=== PATIENT | female | born 1995 | race Caucasian/White ===

== ENCOUNTER 2016-05-28 17:43 | Emergency (ER) | payer MEDICAID, OTHER ==
[~2016-05-28 17:43] MED LIST: PREN1CAP7 PO
[2016-05-28 17:45] VITALS: BP 133/70; PULSE 76; RESP 16; TEMP 97.9; O2SAT 100
[2016-05-28] MEDS ORDERED: IPRA0.06 EACH NARE (18:50)
[2016-05-28] MEDS ORDERED: AMOX875T2 PO (18:50)
--- NOTE | 2016-05-28 18:51 | PD ---
HPI Chief Complaint: Cold / Flu Symptoms Time Seen by Provider: 18:20 Travel History International Travel<30 days: No Contact w/Intl Traveler<30days: No Traveled to known affect area: No History of Present Illness HPI Patient is a 21-year-old female who presents emergency for evaluation of nasal congestion, runny nose, cough, sore throat, earache. Patient states her symptoms started 4 days ago. She states that they have not gotten any better. Patient has not been taking any [id number]-[id number] medications. Patient is 8 1/2 weeks currently. She denies any related complaints. He denies any fevers, chills, nausea, vomiting, chest pain or shortness of breath. PFSH Past Medical History Hx Anticoagulant Therapy: No Cardiovascular Problems: Yes (IRREGULAR HEART BEAT) Chemotherapy: No Cerebrovascular Accident: No Diabetes: No Respiratory: No ?: Menopausal: No Past Surgical History Joint Replacement: Yes (ARTHROSCOPIC SURGERY) Social History Alcohol Use: No Tobacco Use: No Substance Use: No Allergies-Medications (Allergen,Severity, Reaction): Coded Allergies: Lidocaine (Verified Allergy, Severe, Hives, 05/28/16) Bactrim (Verified Allergy, Intermediate, Rash, 05/28/16) *MDRO Multi-Drug Resistant Organism (Verified Allergy, Unknown, 05/28/16) MRSA - wound 08/2013 Reported Meds & Prescriptions Reported Meds & Active Scripts Active Amoxicillin-Clavulanate 875-125 mg Tab 875 Mg PO BID 10 Days not for use in CrCl <30 mL/minute Ipratropium Nasal 0.06% [place] 1 [place] EACH NARE TID Citranatal [place] ( W/O Vit A W/ Fe Fumar) 27-1-260 Mg Cap 1 Cap PO DAILY Review of Systems Except as stated in HPI: all other systems reviewed are Neg General / Constitutional: No: Fever, Chills Eyes: No: Visual changes HENT: Positive: Sore Throat, Rhinitis, Congestion, Earache, No: Headaches, Neck Pain Cardiovascular: No: Chest Pain or Discomfort Respiratory: Positive: Cough, No: Shortness of Breath, Wheezing Gastrointestinal: No: Nausea, Vomiting, Diarrhea, Abdominal Pain Genitourinary: No: Pelvic Pain, Discharge, Vaginal Bleeding Musculoskeletal: No: Myalgias Neurologic: No: Dizziness, Syncope Physical Exam Narrative GENERAL: Well-nourished, well-developed patient. SKIN: Warm and dry. HEAD: Normocephalic. ENT: Mucosa pink and moist. No erythema or exudates. No uvular edema. No uvular , palatal, or tonsillar deviation. Airway patent. Nasal turbinates appear edematous without bloody discharge or purulent drainage or septal hematoma. Cobblestone appearance to posterior pharynx. EYES: No scleral icterus. No injection or drainage. EARS: Bilateral pinnae and external ear canals appear within normal limits. Left tympanic membranes without erythema, dullness or perforation. Right tympanic membrane is mildly erythematous, no bulging or loss of landmarks noted. NECK: Supple, trachea midline. No JVD or lymphadenopathy. CARDIOVASCULAR: Regular rate and rhythm without murmurs, gallops, or rubs. RESPIRATORY: Breath sounds equal bilaterally. No accessory muscle use. GASTROINTESTINAL: Abdomen soft, non-tender, nondistended. MUSCULOSKELETAL: No cyanosis, or edema. BACK: Nontender without obvious deformity. No CVA tenderness. Data Data Last Documented VS Vital Signs Date Time Temp Pulse Resp B/P Pulse Ox O2 Delivery O2 Flow Rate FiO2 05/28/16 17:45 97.9 76 16 133/70 100 Room Air [facility] Medical Decision Making Medical Screen Exam Complete: Yes Emergency Medical Condition: Yes Interpretation(s) Vital Signs Date Time Temp Pulse Resp B/P Pulse Ox O2 Delivery O2 Flow Rate FiO2 05/28/16 17:45 97.9 76 16 133/70 100 Room Air Differential Diagnosis Upper respiratory infection versus bronchitis versus pneumonia versus pharyngitis versus otitis media versus otitis externa versus other Narrative Course Patient is a 21-year-old female who presented to the emergency room for evaluation of nasal congestion, cough and runny stuffy nose, sore throat, earache. Physical examination revealed a mildly erythematous left tympanic membrane. Her presentation appears most consistent with a viral upper respiratory infection. Her symptoms and ongoing for approximately 4 days. She is currently afebrile and well oxygenated on room air. She was encouraged to continue symptomatic management. She is encouraged take acetaminophen as needed for body aches or pain, nasal saline wash, a humidifier. She is encouraged to follow-up with her DINKEY ENGINE OPERATOR. She will be provided with a prescription for ipratropium nasal spray which is recommended per up-to-date guidelines. Patient was encouraged to return to emergency department for any new or worsening symptoms. Patient verbalizes understanding of these instructions. Patient is stable for discharge. Diagnosis Primary Impression: Upper respiratory infection Qualified Code: J06.9 - Viral upper respiratory tract infection Additional Impression: Otitis media, left Qualified Code: H66.92 - Left otitis media, unspecified chronicity, unspecified otitis media type Referrals: Primary Care Physician 3 days Patient Instructions: General Instructions, Upper Respiratory Infection (ED) Departure Forms: Tests/Procedures, Work Release Enter return to work date: May 31, 2016 Additional Instructions: Follow-up with your primary doctor or DINKEY ENGINE OPERATOR Return to emergency department immediately for any new or worsening symptoms Continue with symptomatic management Obtain [id number] nasal saline wash, a humidifier, and acetaminophen as needed and as directed for pain Continue watchful waiting if symptoms begin to worsen you can start the antibiotic however you should be reevaluated by her primary doctor or in the emergency department. Med/Other Pt SpecificInfo: Prescription(s) given Scripts Amoxicillin-Clavulanate 875-125 mg [id number] Mg PO BID 10 Days Ref 0 not for use in CrCl <30 mL/minute Prov:Meghan Strickland 05/28/16 Ipratropium Nasal 0.06% [place]1 [place] EACH NARE TID #1 BOTTLE Ref 0 Prov:Meghan Strickland 05/28/16 Disposition: 01 DISCHARGE HOME Condition: Stable Meghan Strickland May 28, 2016 18:51
[2016-07-15] MEDS ORDERED: TERC.4%V VAGINAL (16:19)
[2016-07-15] MEDS ORDERED: METR-1 PO (16:19)
== END 2016-05-28 19:11 | disposition home or self-care (01) ==
LOC: NEPB 17:43
DX: J06.9 Acute upper respiratory infection, unspecified (principal); H66.92 Otitis media, unspecified, left ear
CPT/HCPCS: 99283

== ENCOUNTER 2016-07-22 11:27 | Emergency (ER) | payer OTHER ==
[~2016-07-22 11:27] MED LIST changes: +METR-1 PO; +TERC.4%V VAGINAL
--- NOTE | 2016-07-22 11:58 | PD ---
HPI Chief Complaint near syncopal episode Date Seen: Jul 22, 2016 Time Seen: 11:30 (Manuel Garcia MD R2) Travel History International Travel<30 Days: No Contact w/Intl Traveler<30Days: No Known Affected Area: No (Manuel Garcia MD R2) History of Present Illness HPI 21-year-old female at 16/2 weeks gestational age presenting to the [facility] ED for a near syncopal episode. She admits to not doing a perfect job of staying well hydrated. Today she woke up and has been feeling lightheaded all day, and then while at work she was standing talking to her boss when her vision blacked out and she had to be helped into a chair. She notes she was sweating profusely after this event. This concerned her enough that she decided to come to the hospital to be evaluated. She denies feeling the baby moving, though understands she is early for this. Of note she does admit to having a history of PVCs with a full cardiac workup in the past that was within normal limits. Para: 0 : 1 (Manuel Garcia MD R2) History Past Medical History Medical History: Denies Significant Hx (Manuel Garcia MD R2) Obstetric History Obstetric History (Manuel Garcia MD R2) Past Surgical History Narrative Surgical Arthroscopic knee surgery (Manuel Garcia MD R2) Family History Family History: Negative (Manuel Garcia MD R2) Social History Alcohol Use: No Tobacco Use: No Substance Abuse: No (Manuel Garcia MD R2) Allergies-Medications (Allergen,Severity, Reaction): Coded Allergies: Lidocaine (Verified Allergy, Severe, Hives, 07/07/16) Bactrim (Verified Allergy, Intermediate, Rash, 07/07/16) *MDRO Multi-Drug Resistant Organism (Verified Allergy, Unknown, 07/07/16) MRSA - wound 08/2013 Home Meds Active Scripts Terconazole Vaginal Cream (Terazol 7 Vaginal Cream)0.4 % Cream1 Appl VAGINAL HS #45 TUBE Ref 0 1 applicatorful intravaginally x 7 nights Prov:Kristi Floyd 07/15/16 Metronidazole (Flagyl)500 Mg Uvh235 Mg PO BID #14 TAB Ref 0 Prov:Kristi FloydP 07/15/16 W/O Vit A W/ Fe Fumar (Citranatal [place])27-1-260 Mg Cap1 Cap PO DAILY #30 CAP Ref 11 Prov:NadegeanaliliaKristi Powell BARBER INSTRUCTOR 05/21/16 Review of Systems General / Constitutional: Weight Gain, No: Fever, Weight Loss Eyes: Blurred Vision, Visual changes HENT: Headaches, Lightheadedness Cardiovascular: No: Irregular Rhythm, Chest Pain or Discomfort Respiratory: No: Cough, Short of Breath Gastrointestinal: Nausea, Abdominal Pain, No: Vomiting, Constipation, Loss of Appetite Genitourinary: No: Urgency, Frequency, Dysuria, Pelvic Pain, Discharge, Vaginal Bleeding Musculoskeletal: No: Limited ROM, Weakness, Cramping, Edema Skin: No Rash, No Itching Neurologic: Dizziness, Syncope (near syncopal), Headache, No: Weakness, Slurred Speech, Seizures Psychiatric: No: Anxiety, Depression (Manuel Garcia MD R2) Physical Exam Narrative GENERAL: Well-nourished, well-developed patient. SKIN: Warm and dry. HEAD: Normocephalic and atraumatic. EYES: No scleral icterus. No injection or drainage. ENT: No nasal drainage noted. Mucous membranes pink. Airway patent. NECK: Supple, trachea midline. No JVD. CARDIOVASCULAR: Regular rate and rhythm without murmurs, gallops, or rubs. RESPIRATORY: Breath sounds equal bilaterally. No accessory muscle use. ABDOMEN/GI: Abdomen soft, non-tender, bowel sounds present, no rebound, no guarding Gravid to 16 weeks size Fundal Height: 16 GENITOURINARY: Uterine Contractions: none FHT's: Doppler heart rate: 150s EXTREMITIES: No cyanosis or edema. BACK: Nontender without obvious deformity. No CVA tenderness. NEUROLOGICAL: Awake and alert. Motor and sensory grossly within normal limits. Five out of 5 muscle strength in all muscle groups. Normal speech. (Manuel Garcia MD R2) Data Data Vital Signs Reviewed: Yes (Manuel Garcia MD R2) MDM Medical Record Reviewed: Yes Interpretation(s) Near syncopal episode in Narrative Course / MDM 21-year-old female at 16/2 weeks gestational age being evaluated for near syncopal episode. Plan 1. IUP -Continue routine care 2. Near syncopal episode -Encourage increased oral hydration -Encouraged standing slowly allowing self to adjust -Encourage avoidance of standing for extremely long periods of time during DW: Dr. Telles (Manuel Garcia MD R2) Diagnosis Diagnosis: Primary Impression: Intrauterine Additional Impression: Near syncope Disposition: 01 DISCHARGE HOME Condition: Stable Attestation I have discussed this patient in detail with resident and agree with management (Ciarra Telles MD) Manuel Garcia MD R2 Jul 22, 2016 11:58 Ciarra Telles MD Jul 22, 2016 18:38
== END 2016-07-22 12:51 | disposition home or self-care (01) ==
LOC: HOBED 11:27
DX: O26.92 Pregnancy related conditions, unspecified, second trimester (principal); R55 Syncope and collapse; Z3A.16 16 weeks gestation of pregnancy
CPT/HCPCS: 99283

== ENCOUNTER 2016-10-03 09:53 | Emergency (ER) | payer MEDICAID, OTHER ==
[~2016-10-03] VITALS: Ht 157.5 cm; Wt 63.5 kg
[~2016-10-03 09:53] MED LIST changes: -METR-1 PO; -TERC.4%V VAGINAL
[2016-10-03 10:07] VITALS: BP 126/82; PULSE 67
[2016-10-03 10:15] VITALS: RESP 18; TEMP 98.7
[2016-10-03] MEDS ORDERED: LACTATED RINGER'S 1000 ML INJ 1,000 ML IV SCH (10:24)
[2016-10-03] MEDS ORDERED: TERBUTALINE INJ 1 MG/ML AMP SQ PRN (10:30)
[2016-10-03] MEDS ORDERED: fentaNYL CITRATE 250 MCG/5 ML AMP IV PUSH ONE (10:30)
[2016-10-03 11:03] LABS: BLOOD, URINE NEG (NEG); COMMENT (UR) CULT NOT INDICATED; CULTURE IF INDICATED CULT NOT INDICATED; GLUCOSE,URINE NEG (NEG); KETONE, URINE NEG (NEG); MUCUS URINE FEW /lpf (OCC); NITRITE,URINE NEG (NEG); PH, URINE 6.5 (5.0-8.5); SQUAMOUS EPITHELIAL CELL URINE 2 /hpf (0-5); URINE COLOR LIGHT-YELLOW (YELLW/STRAW)
--- NOTE | 2016-10-03 11:04 | PD ---
HPI Chief Complaint Cramping abdominal pain Date Seen: Oct 03, 2016 Time Seen: 10:45 Travel History International Travel<30 Days: No Contact w/Intl Traveler<30Days: No Known Affected Area: No History of Present Illness HPI Patient is a 21-year-old at 26 weeks and 5 days who presents with crampy lower abdominal pain since last night. She reports that her crampy lower abdominal pain started around 7:30 PM last night. She was able to get sleep, and then woke up this morning with worse crampy abdominal pain. She describes the pain as crampy bilateral suprapubic abdominal pain, on and off, 4 out of 10 in severity. She does not know the time between episodes of abdominal pain. She denies any leakage of fluid or vaginal bleeding. She endorses movement. Para: 0 : 1 History Past Medical History Medical History: Denies Significant Hx Obstetric History Obstetric History Patient reports that this is her first . Past Surgical History Narrative Surgical Arthroscopic left knee surgery. Family History Family History: Negative Social History Narrative Social History Patient reports living alone. Alcohol Use: No Tobacco Use: No Substance Abuse: No Allergies-Medications (Allergen,Severity, Reaction): Coded Allergies: Lidocaine (Verified Allergy, Severe, Hives, 09/11/16) Bactrim (Verified Allergy, Intermediate, Rash, 09/11/16) *MDRO Multi-Drug Resistant Organism (Verified Allergy, Unknown, 09/11/16) MRSA - wound 08/2013 Sulfa (Verified Allergy, Unknown, rash, 10/03/16) Home Meds Active Scripts W/O Vit A W/ Fe Fumar (Citranatal [place])27-1-260 Mg Cap1 Cap PO DAILY #30 CAP Ref 11 Prov:Kristi Floyd 05/21/16 Review of Systems General / Constitutional: No: Fever, Chills Eyes: No: Blurred Vision, Visual changes HENT: No: Headaches Cardiovascular: No: Irregular Rhythm, Chest Pain or Discomfort, Palpitations Respiratory: No: Short of Breath Gastrointestinal: Abdominal Pain, No: Nausea, Vomiting Genitourinary: No: Dysuria Musculoskeletal: Cramping, No: Edema Neurologic: No: Headache Physical Exam Afebrile and vital signs stable and within normal limits. Narrative GENERAL: Well-nourished, well-developed patient. SKIN: Warm and dry. HEAD: Normocephalic and atraumatic. EYES: No scleral icterus. No injection or drainage. ENT: No nasal drainage noted. Mucous membranes pink. Airway patent. NECK: Supple, trachea midline. No JVD. CARDIOVASCULAR: Regular rate and rhythm without murmurs, gallops, or rubs. RESPIRATORY: Breath sounds equal bilaterally. No accessory muscle use. ABDOMEN/GI: Abdomen soft, non-tender, bowel sounds present, no rebound, no guarding Gravid to 26-27 weeks size GENITOURINARY: External Genitalia: intact and normal in appearance Cervix: Anterior Dilatation: Closed Effacement: Thick Station: -3 Membranes: Intact Uterine Contractions: every 2 minutes FHT's: Category: Category 1 Baseline: 150 Reactive: + Variability: moderate Decels: None EXTREMITIES: No cyanosis or edema. BACK: Nontender without obvious deformity. No CVA tenderness. NEUROLOGICAL: Awake and alert. Motor and sensory grossly within normal limits. Five out of 5 muscle strength in all muscle groups. Normal speech. Data Data Vital Signs Reviewed: Yes Orders Vital Signs (Adult) .ON ADMISSION (10/03/16 10:24) ^ Labor Status (10/03/16 10:24) Urinalysis - C+S If Indicated (10/03/16 10:24) ^ Hydration (10/03/16 10:24) Fentanyl Inj (Fentanyl Inj) (10/03/16 10:30) Lactated Ringer's 1000 Ml Inj (Lr 1000 M (10/03/16 10:24) Terbutaline Inj (Brethine Inj) (10/03/16 10:30) Fentanyl Inj (Fentanyl Inj) (10/03/16 11:00) Fibronectin (10/03/16 10:54) MDM Plan Patient is a 21-year-old at 26 weeks and 5 days who presents with contractions about every 2 minutes. Cervical exam is long thick and closed. heart tracing is category 1. 1. contractions Monitor maternal vital signs, reassuring Monitor labor status post tocometry, no contractions noted after treatment below Monitor heart rate, reassuring Encourage by mouth hydration fibronectin negative UA negative Fentanyl 50 g IV 1 LR IV bolus Terbutaline 0.25 mg subcutaneous every 20 minutes when necessary for contractions --discharge home Diagnosis Diagnosis: Primary Impression: contractions Additional Impression: Normal Disposition: 01 DISCHARGE HOME Condition: Collin Choi MD R1 Oct 03, 2016 11:04
--- NOTE | 2016-10-03 12:00 | PD ---
History of Present Illness Date Seen: Oct 03, 2016 History of Present Illness Patient is 21-year-old white female at 26 weeks who presents for evaluation of cramping pain. Denies bleeding or ruptured membranes. heart rate tracing is reactive and she is travis every 2-3 minutes. fibronectin was negative, cervical exam long closed and thick urinalysis negative patient given a liter of IV fluid, 0.25 mg terbutaline subcutaneous, and the 50 g of fentanyl IV these measures decreased her contraction activity to essentially none. Patient be discharged home she is to increase her oral fluid intake, use Tylenol liberally. And use heating pad on lower abdomen R7 hot bath for discomfort, should follow-up with her OB provider which in [facility] case [facility] Chester Blackman II, MD Oct 03, 2016 12:00
== END 2016-10-03 12:17 | disposition home or self-care (01) ==
LOC: HOBED 09:53
DX: O47.02 False labor before 37 completed weeks of gestation, second trimester (principal); Z3A.26 26 weeks gestation of pregnancy
CPT/HCPCS: 81001; 82731; 96372; 96374; 99284; J3010; J3105; J7120

== ENCOUNTER 2016-11-19 15:12 | Observation (INO) | payer MEDICAID ==
[~2016-11-19] VITALS: Ht 157.5 cm; Wt 68.9 kg
[2016-11-19] MEDS ORDERED: LACTATED RINGER'S 1000 ML INJ 1,000 ML IV ONE (16:00)
--- NOTE | 2016-11-19 16:04 | PD ---
HPI Chief Complaint Contractions Date Seen: Nov 19, 2016 Time Seen: 16:00 Travel History International Travel<30 Days: No Contact w/Intl Traveler<30Days: No Known Affected Area: No History of Present Illness HPI 21-year-old at 33/3 weeks gestation presenting for contractions. Contractions started about noon today, then disappeared for a couple hours. Around 2 PM, she started feeling contractions about every 2-3 minutes fairly regularly. The pain is not exquisite, but is very noticeable prompting her concern. She also notes decreased movement, feeling the baby move only 3- 4 times over the last 48 hours. She denies vaginal bleeding or leakage of fluid. Denies dysuria, chest pain, shortness of breath. Last sexual activity roughly 36 hours ago. History Past Medical History Medical History: Denies Significant Hx Obstetric History Obstetric History G1 Past Surgical History Narrative Surgical Knee arthroscopy Family History Family History: Negative Social History Alcohol Use: No Tobacco Use: No Substance Abuse: No Allergies-Medications (Allergen,Severity, Reaction): Coded Allergies: Lidocaine (Verified Allergy, Severe, Hives, 11/12/16) Bactrim (Verified Allergy, Intermediate, Rash, 11/12/16) *MDRO Multi-Drug Resistant Organism (Verified Allergy, Unknown, 11/12/16) MRSA - wound 08/2013 Sulfa (Verified Allergy, Unknown, rash, 11/12/16) Home Meds Active Scripts W/O Vit A W/ Fe Fumar (Citranatal [place])27-1-260 Mg Cap1 Cap PO DAILY #30 CAP Ref 11 Prov:Kristi Floyd 05/21/16 Review of Systems Except as stated in HPI: all other systems reviewed are Neg Physical Exam Narrative GENERAL: Well-nourished, well-developed patient. SKIN: Warm and dry. HEAD: Normocephalic and atraumatic. EYES: No scleral icterus. No injection or drainage. ENT: No nasal drainage noted. Mucous membranes pink. Airway patent. CARDIOVASCULAR: Regular rate and rhythm without murmurs, gallops, or rubs. RESPIRATORY: Breath sounds equal bilaterally. No accessory muscle use. ABDOMEN/GI: Abdomen soft, non-tender, no rebound, no guarding GENITOURINARY: Speculum exam with difficult to visualize cervix, thin whitish vaginal discharge. Manual exam reveals the following: Cervix: posterior Dilation: closed Effacement: thick Presentation: -2 Membranes: ruptured Contractions: resolved FHT's: Category: 1 Baseline: 125 Reactive: Y Variability: moderate Decels: N EXTREMITIES: No cyanosis or edema. NEUROLOGICAL: Awake and alert. Motor and sensory grossly within normal limits. Normal speech. Data Data Vital Signs Reviewed: Yes Orders Vital Signs (Adult) .ON ADMISSION (11/19/16 15:47) ^ Labor Status (11/19/16 15:47) ^ Non Stress Test (11/19/16 15:47) ^ Hydration (11/19/16 15:47) MDM Medical Record Reviewed: Yes Narrative Course / MDM 21-year-old at 33/3 weeks presenting with contractions #1 IUP Category 1 tracing, reassuring #2 patient contractions Classic by history, picking up contractions on tocometer fibronectin pending Urine dipstick negative - Contractions resolved after LR fluid bolus, tubulin 0.25 mg subcutaneous - Give fentanyl 50 g for pain #3 decreased movement Based on reassuring NST, unlikely to be problematic - kick counts - Return to OB ER if decreased movement fails to resolve spontaneously for BPP testing Update: Admitted for observation due to significant contraction-like pain, though contractions still resolved on monitor. Diagnosis Diagnosis: Primary Impression: contractions Additional Impression: Decreased movement Qualified Code: O36.8130 - Decreased movement, third trimester, not applicable or unspecified fetus Patient Instructions: Labor (ED), Movement (ED) Departure Forms: Tests/Procedures, Work Release Enter return to work date: Nov 24, 2016 Chano Merino MD R1 Nov 19, 2016 16:04
[2016-11-19] MEDS ORDERED: TERBUTALINE INJ 1 MG/ML AMP SQ ONE ×2 (17:00→19:00)
[2016-11-19 17:30] VITALS: PULSE 101
[2016-11-19 17:33] VITALS: BP 138/84; PULSE 94
[2016-11-19 17:34] VITALS: RESP 20; TEMP 97.8
[2016-11-19] MEDS: LACTATED RINGER'S 1000 ML INJ 1,000 ML IV SCH ×2 (18:54→23:11)
[2016-11-19] MEDS ORDERED: SODIUM CHLORIDE 0.9% FLUSH 10 ML FLUSH IV FLUSH PRN (19:00)
[2016-11-19] MEDS ORDERED: ZOLPIDEM TARTRATE 5 MG TAB PO PRN (19:00)
[2016-11-19] MEDS ORDERED: ONDANSETRON HCL 4 MG/2 ML VIAL IV PRN (19:00)
[2016-11-19] MEDS ORDERED: DOCUSATE SODIUM 100 MG CAP PO PRN (19:00)
[2016-11-19] MEDS ORDERED: ACETAMINOPHEN 325 MG TAB PO PRN (19:00)
[2016-11-19] MEDS ORDERED: CALCIUM GLUCONATE 10% 1 GM/10 ML VIAL IV PRN (19:00)
[2016-11-19] MEDS: NIFEdipine 10 MG CAP PO SCH ×4 (19:20→20:32)
[2016-11-19] MEDS: SODIUM CHLORIDE 0.9% FLUSH 10 ML FLUSH IV FLUSH SCH (20:05)
[2016-11-19 20:23] VITALS: BP 99/44; PULSE 71
[2016-11-19 20:24] VITALS: RESP 18
--- NOTE | 2016-11-19 20:36 | HHI.HP ---
HPI Chief Complaint Contraction pain Date Seen: Nov 19, 2016 Travel History International Travel<30 Days: No Contact w/Intl Traveler<30Days: No Known Affected Area: No History of Present Illness HPI Patient 21-year-old white female at 33 weeks [facility] and presents complaining of contraction pain, she denies bleeding or ruptured membranes. She has noted some decreased movement today. heart rate tracing is reactive and she is travis irregularly. 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/2013 Sulfa (Verified Allergy, Unknown, rash, 11/12/16) Home Meds Active Scripts W/O Vit A W/ Fe Fumar (Citranatal [place])27-1-260 Mg Cap1 Cap PO DAILY #30 CAP Ref 11 Prov:Kristi Floyd 05/21/16 Review of Systems General / Constitutional: No: Fever, Weight Gain, Chills, Other Eyes: No: Diploplia, Blurred Vision, Visual changes, Pain, Photophobia HENT: No: Headaches, Vertigo, Lightheadedness Cardiovascular: No: Irregular Rhythm, Chest Pain or Discomfort, Palpitations, Tachycardia, Syncope, Varicosities, Edema, Cyanosis Respiratory: No: Cough, Short of Breath, Other Gastrointestinal: Abdominal Pain, No: Nausea, Vomiting, Diarrhea Genitourinary: No: Decreased Urinary Output, Oliguria Musculoskeletal: Pain, No: Limited ROM, Weakness, Cramping, Edema Skin: No Rash, No Itching, No Dryness, No Lumps, No Change in Pigmentation, No Change in Nails, No Alopecia, No Lesions Neurologic: No: Weakness, Dizziness, Syncope, Focal Abnormalities, Coordination Problem, Headache, Slurred Speech, Seizures Psychiatric: No: Depression, Suicidal Ideations, Homicidal Ideation Endocrine: No: Heat Intolerance, Cold Intolerance, Polydipsia, Polyuria, Other Physical Exam Vital Signs Date Time Temp Pulse Resp B/P Pulse Ox O2 Delivery O2 Flow Rate FiO2 11/19/16 20:24 18 11/19/16 20:23 71 99/44 11/19/16 17:34 97.8 20 11/19/16 17:33 94 138/84 11/19/16 17:30 101 Narrative GENERAL: Well-nourished, well-developed patient. SKIN: Warm and dry. HEAD: Normocephalic and atraumatic. EYES: No scleral icterus. No injection or drainage. ENT: No nasal drainage noted. Mucous membranes pink. Airway patent. NECK: Supple, trachea midline. No JVD. CARDIOVASCULAR: Regular rate and rhythm without murmurs, gallops, or rubs. RESPIRATORY: Breath sounds equal bilaterally. No accessory muscle use. BREASTS: Bilateral exam showed no masses , no retractions, no nipple discharge. ABDOMEN/GI: Abdomen soft, minimally-tender, bowel sounds present, no rebound, no guarding , positive low-grade CVA tenderness bilaterally Gravid to [33-] weeks size Fundal Height: [33-] GENITOURINARY: External Genitalia: intact and normal in appearance Messer exam done fibronectin obtained was negative Cervix: [Closed-] Dilatation: [-Closed] Effacement: [-] Thick Station: [Posterior-] Presentation: [vtx-] Membranes: [intact ] Uterine Contractions: [Irregular every 3-5 minutes-] FHT's: Category: [-1] Baseline: [133-] Reactive: [-yes] Variability: [mod-] Decels: [-none] EXTREMITIES: No cyanosis or edema. BACK: Nontender without obvious deformity. No CVA tenderness. NEUROLOGICAL: Awake and alert. Motor and sensory grossly within normal limits. Five out of 5 muscle strength in all muscle groups. Normal speech. Data Data Orders Vital Signs (Adult) .ON ADMISSION (11/19/16 15:47) ^ Labor Status (11/19/16 15:47) ^ Non Stress Test (11/19/16 15:47) ^ Hydration (11/19/16 15:47) Fibronectin (11/19/16 15:58) Lactated Ringer's 1000 Ml Inj (Lr 1000 M (11/19/16 16:00) Terbutaline Inj (Brethine Inj) (11/19/16 17:00) Fentanyl Inj (Fentanyl Inj) (11/19/16 17:00) Ob (2e) Additional Admit Info (11/19/16 18:29) Fentanyl Inj (Fentanyl Inj) (11/19/16 19:00) Terbutaline Inj (Brethine Inj) (11/19/16 19:00) Place In Observation (11/19/16 ) Vital Signs (Adult) Q4H (11/19/16 18:54) Activity Bed Rest (11/19/16 18:54) Intake + Output CIRO.QSHIFT (11/19/16 18:54) Heart CONTINUOUS (11/19/16 18:54) Diet Regular Basic (11/19/16 Dinner) Lactated Ringer's 1000 Ml Inj (Lr 1000 M (11/19/16 18:54) Sodium Chloride 0.9% Flush (Ns Flush) (11/19/16 19:00) Sodium Chloride 0.9% Flush (Ns Flush) (11/19/16 21:00) Nifedipine (Procardia) (11/19/16 19:00) Calcium Gluconate Inj (Calcium Gluconate (11/19/16 19:00) Acetaminophen (Tylenol) (11/19/16 19:00) Ondansetron Inj (Zofran Inj) (11/19/16 19:00) Docusate Sodium (Colace) (11/19/16 19:00) Qcinairq-Sft-Krdkw-Iron Prenat (Stuartna (11/20/16 09:00) Zolpidem (Ambien) (11/19/16 19:00) Complete Blood Count With Diff (11/20/16 06:00) Drug Screen, Random Urine (11/19/16 18:54) Specimen To Be Collected PRN (11/19/16 18:54) Comprehensive Metabolic Panel (11/19/16 18:57) Type And Screen (11/19/16 18:57) Urinalysis - C+S If Indicated (11/19/16 19:03) Specimen To Be Collected PRN (11/19/16 19:03) Labs Laboratory Tests Test 11/19/16 16:30 Fibronectin NEGATIVE Assessment/Plan Assessment and Plan The patient is 21-year-old white female at 33 weeks presents combining of contraction pain abdominal pain and low back pain. Her heart rate tracing is reactive she is travis every 3-5 minutes and this responded well to IV hydration and terbutaline subcutaneous which we saw decreased the contraction activity patient still complained of pain in the same fashion and not really improving at all even though we were not picking up contractions is also given 75 farheen IV fentanyl. Patient's fibronectin was negative, her due to the patient's degree of pain that she needed to be kept in Observation. Plan to treat her pain as best we can check CBC CMP and urinalysis and treat accordingly Chester Blackman II, MD Nov 19, 2016 20:36
[2016-11-19] MEDS ORDERED: oxyCODONE/ACETAMINOPHEN 5 MG/325 MG TAB PO PRN (20:45)
[2016-11-19 21:03] LABS: BLOOD, URINE NEG (NEG); COMMENT (UR) CULT NOT INDICATED; CULTURE IF INDICATED CULT NOT INDICATED; GLUCOSE,URINE NEG (NEG); KETONE, URINE 150 mg/dL (NEG); MUCUS URINE FEW /lpf (OCC); NITRITE,URINE NEG (NEG); SQUAMOUS EPITHELIAL CELL URINE <1 /hpf (0-5); URINE COLOR YELLOW (YELLW/STRAW)
[2016-11-19 21:09] LABS: AMPHETAMINE, URINE NEG (NEG); BARBITURATES, URINE NEG (NEG); COCAINE, URINE NEG (NEG)
[2016-11-19 21:23] LABS: ANION GAP 8 MEQ/L (5-15); AST (GOT) 17 U/L (16-38); BICARBONATE 24.3 MEQ/L (21.0-32.0); BLOOD UREA NITROGEN 4 MG/DL (7-18); CHLORIDE 108 MEQ/L (98-107); GLOMERULAR FILTRATION RATE 120 ML/MIN (>89); POTASSIUM 4.3 MEQ/L (3.5-5.1); SODIUM (NA) 140 MEQ/L (136-145)
[2016-11-19 21:24] LABS: ALT (GPT) 15 U/L (9-42)
[2016-11-19 21:26] LABS: ALKALINE PHOSPHATASE 103 U/L (45-117); TOTAL BILIRUBIN ADULT 0.3 MG/DL (0.2-1.0)
[2016-11-19 22:31] LABS: AUTOMATED NEUTROPHIL # 13.2 TH/MM3 (1.8-7.7); BASOPHIL % 0.2 % (0.0-2.0); EOSINOPHIL % 0.1 % (0.0-4.0); HEMATOCRIT 33.5 % (35.0-46.0); HEMO FLAGS DIFF FINAL; LYMPH % 14.6 % (9.0-44.0); LYMPHOCYTE # 2.5 TH/MM3 (1.0-4.8); MEAN CELL VOLUME 88.9 FL (80.0-100.0); MEAN CORPUSCULAR HEMOGLOBIN 28.7 PG (27.0-34.0); MEAN CORPUSCULAR HGB CONC 32.3 % (32.0-36.0); MONO % 7.6 % (0.0-8.0); NEUT % 77.5 % (16.0-70.0); PLATELET COUNT 207 TH/MM3 (150-450); RED BLOOD COUNT 3.77 MIL/MM3 (4.00-5.30); WHITE BLOOD COUNT 17.1 TH/MM3 (4.0-11.0)
[2016-11-19 23:31] VITALS: BP 125/67; PULSE 69; RESP 16; TEMP 98.2
[2016-11-20 05:13] VITALS: BP 103/54; PULSE 67; RESP 16; TEMP 98.2
[2016-11-20] MEDS: LACTATED RINGER'S 1000 ML INJ 1,000 ML IV SCH (06:21)
--- NOTE | 2016-11-20 07:15 | HHI.DCPOC ---
Discharge Care Plan Diagnosis: (1) contractions (2) Decreased movement Report Symptoms to Your Doctor -Temperature above 100.5 degrees -Redness, of incision or excessive or foul smelling drainage -Unusual pain or calf pain -Increased vaginal bleeding -Painful or difficulty urinating -Feelings of extreme sadness or anxiety after 2 weeks Goals to Promote Your Health * To prevent worsening of your condition and complications * To maintain your health at the optimal level Directions to Meet Your Goals Take your medications as prescribed Follow your dietary instruction Follow activity as directed Ensure plenty of rest for recovery Drink fluids for hydration Keep your appointments as scheduled Take your immunizations and boosters as scheduled If your symptoms worsen call your PCP, if no PCP go to Urgent Care Center or Emergency Room Smoking is Dangerous to Your Health. Avoid second hand smoke Call the 24-hour crisis hotline for domestic abuse at Chano Merino MD R1 Nov 20, 2016 07:15
--- NOTE | 2016-11-20 07:20 | PD.OB.ANTE ---
Subjective Interval History Supper the night after receiving Ambien for sleep, pain currently is 0 out of 10. No new concerns. Antepartum ROS: Reports: movement normal, Denies: New complaints, Loss of fluid, Vaginal bleeding, Contractions Objective Vital Signs Vital Signs Date Time Temp Pulse Resp B/P Pulse Ox O2 Delivery O2 Flow Rate FiO2 11/20/16 05:13 67 103/54 11/20/16 05:13 98.2 11/20/16 05:13 16 11/19/16 23:31 98.2 11/19/16 23:31 69 16 125/67 11/19/16 20:24 18 11/19/16 20:23 71 99/44 11/19/16 17:34 97.8 20 11/19/16 17:33 94 138/84 11/19/16 17:30 101 Lab & Micro Results Test 11/19/16 11/19/16 16:30 20:29 Fibronectin NEGATIVE White Blood Count 17.1 TH/MM3 Red Blood Count 3.77 MIL/MM3 Hemoglobin 10.8 GM/DL Hematocrit 33.5 % Mean Corpuscular Volume 88.9 FL Mean Corpuscular Hemoglobin 28.7 PG Mean Corpuscular Hemoglobin 32.3 % Concent Red Cell Distribution Width 12.0 % Platelet Count 207 TH/MM3 Mean Platelet Volume 8.5 FL Neutrophils (%) (Auto) 77.5 % Lymphocytes (%) (Auto) 14.6 % Monocytes (%) (Auto) 7.6 % Eosinophils (%) (Auto) 0.1 % Basophils (%) (Auto) 0.2 % Neutrophils # (Auto) 13.2 TH/MM3 Lymphocytes # (Auto) 2.5 TH/MM3 Monocytes # (Auto) 1.3 TH/MM3 Eosinophils # (Auto) 0.0 TH/MM3 Basophils # (Auto) 0.0 TH/MM3 CBC Comment DIFF FINAL Differential Comment Urine Color YELLOW Urine Turbidity CLEAR Urine pH 6.0 Urine Specific [place] 1.017 Urine Protein TRACE mg/dL Urine Glucose (UA) NEG mg/dL Urine Ketones 150 mg/dL Urine Occult Blood NEG Urine Nitrite NEG Urine Bilirubin NEG Urine Urobilinogen LESS THAN 2.0 MG/DL Urine Leukocyte Esterase NEG Urine RBC 1 /hpf Urine WBC 2 /hpf Urine Squamous Epithelial <1 /hpf Cells Urine Mucus FEW /lpf Microscopic Urinalysis Comment CULT NOT INDICATED Sodium Level 140 MEQ/L Potassium Level 4.3 MEQ/L Chloride Level 108 MEQ/L Carbon Dioxide Level 24.3 MEQ/L Anion Gap 8 MEQ/L Blood Urea Nitrogen 4 MG/DL Creatinine 0.63 MG/DL Estimat Glomerular Filtration 120 ML/MIN Rate Random Glucose 77 MG/DL Calcium Level 8.4 MG/DL Total Bilirubin 0.3 MG/DL Aspartate Amino Transf 17 U/L (AST/SGOT) Alanine Aminotransferase 15 U/L (ALT/SGPT) Alkaline Phosphatase 103 U/L Total Protein 5.9 GM/DL Albumin 2.3 GM/DL Urine Opiates Screen NEG Urine Barbiturates Screen NEG Urine Amphetamines Screen NEG Urine Benzodiazepines Screen NEG Urine Cocaine Screen NEG Urine Cannabinoids Screen NEG Blood Type A NEGATIVE Antibody Screen POSITIVE Antibody Identification PASSIVE ANTI-D DUE TO RHOGAM Crossmatch Leukocyte-Reduced Red Blood Cells Blood Bank Comment Physical Exam GENERAL: Well-nourished, well-developed patient. CARDIOVASCULAR: Regular rate and rhythm without murmurs, gallops, or rubs. RESPIRATORY: Breath sounds equal bilaterally. No accessory muscle use. ABDOMEN/GI: Abdomen soft, non-tender. GENITOURINARY: External Genitalia: intact and normal in appearance Cervix: posterior Dilatation: closed Effacement: thick Station: high Presentation: vertex Membranes: intact Uterine Contractions: none FHT's: Category: 1 Baseline: 130 Reactive: Y Variability: moderate Decels: none EXTREMITIES: No cyanosis or edema, non-tender, without signs of DVT. Assessment and Plan Problem List: (1) contractions Status: Acute (2) Decreased movement Status: Resolved Assessment and Plan 21-year-old at 33/4 weeks gestation presenting with contractions now resolved, admitted for pain control and observation #1 IUP Category 1 tracing, reassuring #2 contractions Resolved after terbutaline, Procardia, IV fluids, fentanyl fibronectin negative - Discharge home with labor precautions #3 decreased movement NST reactive throughout hospital stay - Discharge home with kick counts, return to OB ER for BPP testing if decreased movement fails to resolve spontaneously #4 round ligament/soft tissue pain Pain persisted last night despite resolved contractions, now pain has resolved - Tylenol as needed for pain at home Disposition: Discharge home Chano Johnson Dr., MD R1 Nov 20, 2016 07:20
[2016-11-20 07:23] VITALS: BP 112/65; PULSE 76
[2016-11-20 07:24] VITALS: TEMP 98.1
[2016-11-20 07:26] VITALS: RESP 16
[2016-11-20] MEDS: SODIUM CHLORIDE 0.9% FLUSH 10 ML FLUSH IV FLUSH SCH (07:56)
[2016-11-20] MEDS ORDERED: MULTIVIT/MIN/PREN/FOL AC/IRON PRENATAL TAB PO SCH (09:00)
== END 2016-11-20 08:02 | disposition home or self-care (01) ==
LOC: HOBED 15:12 → H2EA 18:30
PROVIDERS: ADMIT Obstetrics & Gynecology Maternal & Fetal Medicine; ATTEND Obstetrics & Gynecology Maternal & Fetal Medicine
DX: O60.03 Preterm labor without delivery, third trimester (principal); Z3A.33 33 weeks gestation of pregnancy; O36.8130 Decreased fetal movements, third trimester, not applicable or unspecified; R10.9 Unspecified abdominal pain; M54.5 Low back pain
CPT/HCPCS: 59025; 80053; 80307; 81001; 82731; 85025; 86077; 86850; 86870; 86900; 86901; 86920; 86922; 96372; 96374; 96376; 99285; G0378; J3010; J3105; J7120

== ENCOUNTER 2017-03-06 12:48 | Emergency (ER) | payer MEDICAID ==
[~2017-03-06 12:48] MED LIST changes: +MEDR150I IM
[2017-03-06 13:00] VITALS: BP 163/85; PULSE 60; RESP 20; TEMP 98.4; O2SAT 99
[2017-03-06] MEDS ORDERED: SODIUM CHLORIDE 0.9% FLUSH 10 ML FLUSH IV FLUSH PRN (14:15)
--- NOTE | 2017-03-06 14:16 | PD ---
HPI Chief Complaint: GI Complaint Time Seen by Provider: 14:13 Travel History International Travel<30 days: No Contact w/Intl Traveler<30days: No Traveled to known affect area: No History of Present Illness HPI OVER PAST 3 MONTHS , INTERMITTENT , BRBPR, MOSTLY PAINLESS NOW, USED TO BE PAINFUL, DENIES H/O CONSTIPATION. TOLERATING FOOD WELL NOW. PFSH Past Medical History Hx Anticoagulant Therapy: No Cardiovascular Problems: Yes (IRREGULAR HEART BEAT) Chemotherapy: No Cerebrovascular Accident: No Diabetes: No Respiratory: No Menopausal: No Past Surgical History Joint Replacement: Yes (ARTHROSCOPIC SURGERY) Social History Alcohol Use: No Tobacco Use: No Substance Use: No Allergies-Medications (Allergen,Severity, Reaction): Coded Allergies: lidocaine (Unverified Allergy, Severe, Hives, 03/06/17) sulfamethoxazole (Unverified Allergy, Intermediate, Rash, 03/06/17) trimethoprim (Unverified Allergy, Intermediate, Rash, 03/06/17) *MDRO Multi-Drug Resistant Organism (Verified Allergy, Unknown, 03/06/17) MRSA - wound 08/2013 Sulfa (Sulfonamide Antibiotics) (Unverified Allergy, Unknown, rash, ) Reported Meds & Prescriptions Reported Meds & Active Scripts Active Medroxyprogesterone Inj 150 Mg/Ml Inj 150 Mg IM Q90D Review of Systems Except as stated in HPI: all other systems reviewed are Neg General / Constitutional: No: Fever Eyes: No: Visual changes HENT: No: Headaches Cardiovascular: No: Chest Pain or Discomfort Respiratory: No: Shortness of Breath Gastrointestinal: Positive: Hematochezia Genitourinary: No: Dysuria Musculoskeletal: No: Pain Skin: No Rash Neurologic: No: Weakness Psychiatric: No: Depression Endocrine: No: Polydipsia Hematologic/Lymphatic: No: Easy Bruising Physical Exam Narrative GENERAL: SKIN: Warm and dry. HEAD: Atraumatic. Normocephalic. EYES: Pupils equal and round. No scleral icterus. No injection or drainage. ENT: No nasal bleeding or discharge. Mucous membranes pink and moist. NECK: Trachea midline. No JVD. CARDIOVASCULAR: Regular rate and rhythm. RESPIRATORY: No accessory muscle use. Clear to auscultation. Breath sounds equal bilaterally. GASTROINTESTINAL: Abdomen soft, non-tender, nondistended. MUSCULOSKELETAL: Extremities without clubbing, cyanosis, or edema. No obvious deformities. NEUROLOGICAL: Awake and alert. No obvious cranial nerve deficits. Motor grossly within normal limits. Five out of 5 muscle strength in the arms and legs. Normal speech. PSYCHIATRIC: Appropriate mood and affect; insight and judgment normal. Data Data Last Documented VS Vital Signs Date Time Temp Pulse Resp B/P (MAP) Pulse Ox O2 Delivery O2 Flow Rate FiO2 03/06/17 15:16 98 03/06/17 13:00 98.4 60 20 163/85 (111) Orders Orders Complete Blood Count With Diff (03/06/17 14:13) Comprehensive Metabolic Panel (03/06/17 14:13) Lipase (03/06/17 14:13) Prothrombin Time / Inr (Pt) (03/06/17 14:13) Act Partial Throm Time (Ptt) (03/06/17 14:13) Urinalysis - C+S If Indicated (03/06/17 14:13) Ct Abd/Pel W/O Iv Contrast (03/06/17 14:13) Iv Access Insert/Monitor (03/06/17 14:13) Ecg Monitoring (03/06/17 14:13) Oximetry (03/06/17 14:13) NPO (03/06/17 14:13) Sodium Chloride 0.9% Flush (Ns Flush) (03/06/17 14:15) Ed Urine Pregnancytest Poc (03/06/17 14:13) Ed Discharge Order (03/06/17 15:44) Labs Laboratory Tests Test 03/06/17 14:20 03/06/17 14:28 Urine Collection Type CLEAN CATCH Urine Color YELLOW Urine Turbidity CLEAR Urine pH 7.0 Urine Specific [place] 1.012 Urine Protein NEG mg/dL Urine Glucose (UA) NEG mg/dL Urine Ketones NEG mg/dL Urine Occult Blood TRACE Urine Nitrite NEG Urine Bilirubin NEG Urine Leukocyte Esterase NEG Urine RBC 0-3 /hpf Urine WBC 3-5 /hpf Urine Squamous Epithelial Cells 0-5 /hpf Urine Renal Epithelial Cells 0-5 /hpf Microscopic Urinalysis Comment CULT NOT INDICATED Urine Collection Time 14:20 White Blood Count 7.2 TH/MM3 Red Blood Count 4.75 MIL/MM3 Hemoglobin 13.6 GM/DL Hematocrit 40.6 % Mean Corpuscular Volume 85.6 FL Mean Corpuscular Hemoglobin 28.7 PG Mean Corpuscular Hemoglobin Concent 33.5 % Red Cell Distribution Width 13.0 % Platelet Count 324 TH/MM3 Mean Platelet Volume 7.3 FL Neutrophils (%) (Auto) 54.3 % Lymphocytes (%) (Auto) 37.4 % Monocytes (%) (Auto) 6.7 % Eosinophils (%) (Auto) 0.9 % Basophils (%) (Auto) 0.7 % Neutrophils # (Auto) 3.8 TH/MM3 Lymphocytes # (Auto) 2.7 TH/MM3 Monocytes # (Auto) 0.5 TH/MM3 Eosinophils # (Auto) 0.1 TH/MM3 Basophils # (Auto) 0.1 TH/MM3 CBC Comment DIFF FINAL Differential Comment Prothrombin Time 10.7 SEC Prothromb Time International Ratio 1.0 RATIO Activated Partial Thromboplast Time 27.1 SEC Blood Urea Nitrogen 12 MG/DL Creatinine 0.79 MG/DL Random Glucose 84 MG/DL Total Protein 8.0 GM/DL Albumin 4.1 GM/DL Calcium Level 8.9 MG/DL Alkaline Phosphatase 62 U/L Aspartate Amino Transf (AST/SGOT) 19 U/L Alanine Aminotransferase (ALT/SGPT) 25 U/L Total Bilirubin 0.4 MG/DL Sodium Level 139 MEQ/L Potassium Level 3.5 MEQ/L Chloride Level 106 MEQ/L Carbon Dioxide Level 25.5 MEQ/L Anion Gap 8 MEQ/L Estimat Glomerular Filtration Rate 92 ML/MIN Lipase 161 U/L MDM Medical Decision Making Medical Screen Exam Complete: Yes Emergency Medical Condition: Yes Medical Record Reviewed: Yes Differential Diagnosis GI BLEED V ANEMIA V PANC V DEHYDRATION Narrative Course NO E/O PANCREATITIS OR DEHYDRATION, HEMODYNAMICALLY STABLE AND H/H STABLE WELL. ADVISED PATIENT TO FOLLOW UP WITH A GI SPECIALIST FOR FURTHER EVALUATION Diagnosis Primary Impression: GI BLEED (NONACTIVE) Referrals: Jp Trujillo MD FOR FURTHER EVALUATION OF YOUR BRIGHT RED BLOOD PER RECTUM THAT YOU HAVE NOTICED Disposition: 01 DISCHARGE HOME Condition: Stable Fabian Garcia MD Mar 06, 2017 14:16
[2017-03-06 14:45] LABS: AUTOMATED NEUTROPHIL # 3.8 TH/MM3 (1.8-7.7); BASOPHIL # 0.1 TH/MM3 (0-0.2); BASOPHIL % 0.7 % (0.0-2.0); EOSINOPHIL # 0.1 TH/MM3 (0-0.4); EOSINOPHIL % 0.9 % (0.0-4.0); HEMATOCRIT 40.6 % (35.0-46.0); HEMO FLAGS DIFF FINAL; LYMPH % 37.4 % (9.0-44.0); LYMPHOCYTE # 2.7 TH/MM3 (1.0-4.8); MEAN CELL VOLUME 85.6 FL (80.0-100.0); MEAN CORPUSCULAR HEMOGLOBIN 28.7 PG (27.0-34.0); MEAN CORPUSCULAR HGB CONC 33.5 % (32.0-36.0); MONO % 6.7 % (0.0-8.0); NEUT % 54.3 % (16.0-70.0); PLATELET COUNT 324 TH/MM3 (150-450); RED BLOOD COUNT 4.75 MIL/MM3 (4.00-5.30); WHITE BLOOD COUNT 7.2 TH/MM3 (4.0-11.0)
[2017-03-06 14:45] LABS: GLUCOSE,URINE NEG (NEG); KETONE, URINE NEG (NEG); NITRITE,URINE NEG (NEG)
[2017-03-06 14:53] LABS: BLOOD, URINE TRACE (NEG)
[2017-03-06 14:54] LABS: METHOD OF COLLECTION CLEAN CATCH; RBC, URINE 0-3 /hpf (0-3); RENAL EPITHELIAL CELLS 0-5 /hpf; SQUAMOUS EPITHELIAL CELL URINE 0-5 /hpf (0-5); URINE COLOR YELLOW (YELLW/STRAW)
[2017-03-06 14:55] LABS: COMMENT (UR) CULT NOT INDICATED; CULTURE IF INDICATED CULT NOT INDICATED
--- NOTE | 2017-03-06 15:03 | RADRPT ---
EXAM DATE/TIME: 03/06/2017 14:50 [facility] COMPARISON: No previous studies available for comparison. INDICATIONS : Rectal bleeding x 3 months. ORAL CONTRAST: No oral contrast ingested. RADIATION DOSE: 7.16 CTDIvol (mGy) MEDICAL HISTORY : None SURGICAL HISTORY : None. ENCOUNTER: Initial ACUITY: 3 months PAIN SCALE: 0/10 LOCATION: Abdomen TECHNIQUE: Volumetric scanning of the abdomen and pelvis was performed. Using automated exposure control and ad justment of the mA and/or kV according to patient size, radiation dose was kept as low as reasonably achievable to obtain optimal diagnostic quality images. DICOM format image data is available electro nically for review and comparison. FINDINGS: Lung base is are clear. The liver, spleen, pancreas and adrenals unremarkable There are no renal calculi Region of the cecum and terminal unremarkable. Prominent uterus and cervical region with tampon in place There no inflammatory changes in the pelvis Review of bone windows reveals only mild facet disease L5-S1. CONCLUSION: Prominent uterus and uterine cervical junction. Tampon in place No other abnormality is appreciated. Ramon Gottlieb MD FACR on March 06, 2017 at 14:59 Board Certified Radiologist. This report was verified electronically.
[2017-03-06 15:16] VITALS: O2SAT 98
[2017-03-06 15:17] LABS: CHLORIDE 106 MEQ/L (98-107); POTASSIUM 3.5 MEQ/L (3.5-5.1); SODIUM (NA) 139 MEQ/L (136-145)
[2017-03-06 15:21] LABS: ANION GAP 8 MEQ/L (5-15); BICARBONATE 25.5 MEQ/L (21.0-32.0); BLOOD UREA NITROGEN 12 MG/DL (7-18)
[2017-03-06 15:23] LABS: ALT (GPT) 25 U/L (10-53); APTT (PATIENT) 27.1 SEC (24.3-30.1); PROTHROMBIN TIME - PATIENT 10.7 SEC (9.8-11.6)
[2017-03-06 15:24] LABS: AST (GOT) 19 U/L (15-37); GLOMERULAR FILTRATION RATE 92 ML/MIN (>89)
[2017-03-06 15:25] LABS: TOTAL BILIRUBIN ADULT 0.4 MG/DL (0.2-1.0)
[2017-03-06 15:26] LABS: ALKALINE PHOSPHATASE 62 U/L (45-117)
== END 2017-03-06 16:22 | disposition home or self-care (01) ==
LOC: PHED 12:48
DX: K92.2 Gastrointestinal hemorrhage, unspecified (principal)
CPT/HCPCS: 74176; 80053; 81001; 83690; 84703; 85025; 85610; 85730; 99284

== ENCOUNTER 2017-09-10 09:28 | Emergency (ER) | payer MEDICAID ==
[~2017-09-10] VITALS: Ht 157.5 cm; Wt 57.4 kg
[~2017-09-10 09:28] MED LIST changes: -PREN1CAP7 PO
[2017-09-10 09:30] VITALS: BP 131/90; PULSE 87; RESP 18; TEMP 98.7; O2SAT 99
[2017-09-10 09:47] LABS: BILIRUBIN, URINE NEG (NEG); BLOOD, URINE TRACE (NEG); GLUCOSE,URINE NEG (NEG); KETONE, URINE NEG (NEG); NITRITE,URINE NEG (NEG); URINE COLOR YELLOW (YELLW/STRAW); URINE LEUKOCYTE ESTERASE TRACE (NEG)
[2017-09-10 09:56] LABS: BACTERIA, URINE FEW /hpf; SQUAMOUS EPITHELIAL CELL URINE > 8 /hpf (0-5)
--- NOTE | 2017-09-10 09:58 | PD ---
HPI Chief Complaint: Pain: Acute or Chronic Time Seen by Provider: 09:46 Travel History International Travel<30 days: No Contact w/Intl Traveler<30days: No Traveled to known affect area: No History of Present Illness HPI This 22-year-old female says that this morning both of her shoulders and both of her hips were very painful. She feels like her arms and legs are swollen. She is not aware of any fever or chills. She had some pain in her shoulders yesterday which made it difficult for her to work. Couple weeks ago she had an episode where her hands were swelling. She is not aware of fever or chills. No mother has lupus. Her grandmother has fibromyalgia. He has not been any rash. She does say she gets some hives from blood pressure cuffs PFSH Past Medical History Hx Anticoagulant Therapy: No Cardiovascular Problems: Yes (IRREGULAR HEART BEAT) Chemotherapy: No Cerebrovascular Accident: No Diabetes: No Diminished Hearing: No Respiratory: No ?: Not LMP: irregular due to depo Menopausal: No Past Surgical History Joint Replacement: Yes (ARTHROSCOPIC SURGERY) Social History Alcohol Use: No Tobacco Use: No Substance Use: No Allergies-Medications (Allergen,Severity, Reaction): Coded Allergies: lidocaine (Unverified Allergy, Severe, Hives, 09/10/17) sulfamethoxazole (Unverified Allergy, Intermediate, Rash, 09/10/17) trimethoprim (Unverified Allergy, Intermediate, Rash, 09/10/17) *MDRO Multi-Drug Resistant Organism (Verified Allergy, Unknown, 09/10/17) MRSA - wound 08/2013 Sulfa (Sulfonamide Antibiotics) (Unverified Allergy, Unknown, rash, ) Reported Meds & Prescriptions Reported Meds & Active Scripts Active Medroxyprogesterone Inj 150 Mg/Ml Inj 150 Mg IM Q90D Review of Systems General / Constitutional: No: Fever, Chills Eyes: No: Diploplia, Blurred Vision HENT: No: Headaches Cardiovascular: No: Chest Pain or Discomfort, Palpitations Respiratory: No: Cough, Shortness of Breath Gastrointestinal: No: Vomiting, Diarrhea Genitourinary: No: Urgency, Frequency Musculoskeletal: Positive: Myalgias, Arthralgias, Edema Skin: No Rash Neurologic: No: Weakness, Dizziness Hematologic/Lymphatic: No: Easy Bruising Physical Exam Narrative GENERAL: Well-developed female SKIN: Focused skin assessment warm/dry. HEAD: Atraumatic. Normocephalic. EYES: Pupils equal and round. No scleral icterus. No injection or drainage. ENT: No nasal bleeding or discharge. Mucous membranes pink and moist. NECK: Trachea midline. No JVD. CARDIOVASCULAR: Regular rate and rhythm. No murmur appreciated. RESPIRATORY: No accessory muscle use. Clear to auscultation. Breath sounds equal bilaterally. GASTROINTESTINAL: Abdomen soft, non-tender, nondistended. Hepatic and splenic margins not palpable. MUSCULOSKELETAL: No obvious deformities. No clubbing. No cyanosis. No edema. Complains of shoulder pain in her arms lifted overhead. There is no warmth or erythema. NEUROLOGICAL: Awake and alert. No obvious cranial nerve deficits. Motor grossly within normal limits. Normal speech. PSYCHIATRIC: Appropriate mood and affect; insight and judgment normal. Data Data Last Documented VS Vital Signs Date Time Temp Pulse Resp B/P (MAP) Pulse Ox O2 Delivery O2 Flow Rate FiO2 09/10/17 10:06 16 09/10/17 09:30 98.7 87 131/90 (104) 99 Orders Orders Urinalysis - C+S If Indicated (09/10/17 09:31) Ed Urine Pregnancytest Poc (09/10/17 09:34) Complete Blood Count With Diff (09/10/17 09:53) Comprehensive Metabolic Panel (09/10/17 09:53) C-Reactive Protein (Crp) (09/10/17 09:53) Westergren Sedimentation Rate (09/10/17 09:53) Urine Culture (09/10/17 09:38) Labs Laboratory Tests Test 09/10/17 09:38 09/10/17 10:02 Urine Collection Type CLEAN CATCH Urine Color YELLOW Urine Turbidity CLEAR Urine pH 6.0 Urine Specific [place] 1.015 Urine Protein TRACE mg/dL Urine Glucose (UA) NEG mg/dL Urine Ketones NEG mg/dL Urine Occult Blood TRACE Urine Nitrite NEG Urine Bilirubin NEG Urine Urobilinogen 0.2 MG/DL Urine Leukocyte Esterase TRACE Urine RBC 4-9 /hpf Urine WBC 9-14 /hpf Urine Squamous Epithelial Cells > 8 /hpf Urine Bacteria FEW /hpf Microscopic Urinalysis Comment CULTURE INDICATED Urine Collection Time 09:38 White Blood Count 9.6 TH/MM3 Red Blood Count 4.72 MIL/MM3 Hemoglobin 13.7 GM/DL Hematocrit 40.0 % Mean Corpuscular Volume 84.9 FL Mean Corpuscular Hemoglobin 29.0 PG Mean Corpuscular Hemoglobin Concent 34.2 % Red Cell Distribution Width 12.6 % Platelet Count 289 TH/MM3 Mean Platelet Volume 7.6 FL Neutrophils (%) (Auto) 78.0 % Lymphocytes (%) (Auto) 12.0 % Monocytes (%) (Auto) 6.4 % Eosinophils (%) (Auto) 3.2 % Basophils (%) (Auto) 0.4 % Neutrophils # (Auto) 7.5 TH/MM3 Lymphocytes # (Auto) 1.2 TH/MM3 Monocytes # (Auto) 0.6 TH/MM3 Eosinophils # (Auto) 0.3 TH/MM3 Basophils # (Auto) 0.0 TH/MM3 CBC Comment DIFF FINAL Differential Comment Erythrocyte Sedimentation Rate 14 mm/hr Blood Urea Nitrogen 7 MG/DL Creatinine 0.74 MG/DL Random Glucose 87 MG/DL Total Protein 7.5 GM/DL Albumin 3.6 GM/DL Calcium Level 8.8 MG/DL Alkaline Phosphatase 65 U/L Aspartate Amino Transf (AST/SGOT) 13 U/L Alanine Aminotransferase (ALT/SGPT) 23 U/L Total Bilirubin 0.7 MG/DL Sodium Level 140 MEQ/L Potassium Level 3.8 MEQ/L Chloride Level 110 MEQ/L Carbon Dioxide Level 25.2 MEQ/L Anion Gap 5 MEQ/L Estimat Glomerular Filtration Rate 99 ML/MIN C-Reactive Protein 7.05 MG/DL MDM Medical Decision Making Medical Screen Exam Complete: Yes Emergency Medical Condition: Yes Medical Record Reviewed: Yes Differential Diagnosis Differential includes arthritis, UTI, electrolyte imbalance Narrative Course Sed rate is 14. Her CRP is elevated at 7. Hemoglobin is 13 with a white count of 9000. Urinalysis does show infection with 9-14 white cells. She will be placed on Macrodantin I have advised her that if her joint symptoms should persist she should follow-up with rheumatology Diagnosis Primary Impression: UTI (urinary tract infection) Additional Instructions: Follow-up with gamb cutter if joint symptoms persist Scripts Nitrofurantoin Monohydrate Macrocrystals (Macrobid) 100 Mg Capsule 100 MG PO BID for Infection for 7 Days, #14 CAP 0 Refills Prov: Bryn Andrade MD 09/10/17 Disposition: 01 DISCHARGE HOME Condition: Stable Bryn Andrade MD September 10, 2017 09:58
[2017-09-10 10:14] LABS: AUTOMATED NEUTROPHIL # 7.5 TH/MM3 (1.8-7.7); BASOPHIL % 0.4 % (0.0-2.0); EOSINOPHIL # 0.3 TH/MM3 (0-0.4); EOSINOPHIL % 3.2 % (0.0-4.0); HEMOGLOBIN 13.7 GM/DL (11.6-15.3); LYMPHOCYTE # 1.2 TH/MM3 (1.0-4.8); MEAN CELL VOLUME 84.9 FL (80.0-100.0); MEAN CORPUSCULAR HGB CONC 34.2 % (32.0-36.0); MEAN PLATELET VOLUME 7.6 FL (7.0-11.0); MONO % 6.4 % (0.0-8.0); MONOCYTE # 0.6 TH/MM3 (0-0.9); PLATELET COUNT 289 TH/MM3 (150-450); RED BLOOD COUNT 4.72 MIL/MM3 (4.00-5.30); RED CELL DISTRIBUTION WIDTH 12.6 % (11.6-17.2); WHITE BLOOD COUNT 9.6 TH/MM3 (4.0-11.0)
[2017-09-10 10:26] LABS: CHLORIDE 110 MEQ/L (98-107); SODIUM (NA) 140 MEQ/L (136-145)
[2017-09-10 10:29] LABS: CALCIUM 8.8 MG/DL (8.5-10.1)
[2017-09-10 10:30] LABS: ALBUMIN 3.6 GM/DL (3.4-5.0); BICARBONATE 25.2 MEQ/L (21.0-32.0); BLOOD UREA NITROGEN 7 MG/DL (7-18); GLUCOSE,RANDOM 87 MG/DL (74-106)
[2017-09-10 10:33] LABS: ALT (GPT) 23 U/L (10-53); AST (GOT) 13 U/L (15-37); CREATININE 0.74 MG/DL (0.50-1.00); GLOMERULAR FILTRATION RATE 99 ML/MIN (>89)
[2017-09-10 10:34] LABS: TOTAL BILIRUBIN ADULT 0.7 MG/DL (0.2-1.0)
[2017-09-10 10:35] LABS: TOTAL PROTEIN 7.5 GM/DL (6.4-8.2)
[2017-09-10 10:36] LABS: ALKALINE PHOSPHATASE 65 U/L (45-117)
[2017-09-10 10:41] LABS: C-REACTIVE PROTEIN 7.05 MG/DL (0.00-0.30)
[2017-09-10 11:55] VITALS: BP 92/52; PULSE 70; RESP 16; O2SAT 98
[2017-09-10] MEDS ORDERED: MACR100C2 PO (12:02)
== END 2017-09-10 12:14 | disposition home or self-care (01) ==
LOC: PHED 09:28
DX: N39.0 Urinary tract infection, site not specified (principal); M79.89 Other specified soft tissue disorders; Z79.899 Other long term (current) drug therapy; Z88.2 Allergy status to sulfonamides; Z88.8 Allergy status to other drugs, medicaments and biological substances
CPT/HCPCS: 80053; 81001; 84703; 85025; 85652; 86140; 87086; 99283

== ENCOUNTER 2017-09-15 22:27 | Emergency (ER) | payer MEDICAID ==
[~2017-09-15] VITALS: Ht 157.5 cm; Wt 57.9 kg
[~2017-09-15 22:27] MED LIST changes: +MACR100C2 PO
[2017-09-15 22:33] VITALS: BP 128/75; PULSE 87; RESP 18; TEMP 98.4; O2SAT 93
--- NOTE | 2017-09-15 23:02 | PD ---
HPI Chief Complaint: Pain: Acute or Chronic Time Seen by Provider: 22:55 Travel History International Travel<30 days: No Contact w/Intl Traveler<30days: No Traveled to known affect area: No History of Present Illness HPI Patient was seen on September 10 for the same complaint, on that visit the patient was found to have a normal sed rate, but a UA consistent with a UTI. Patient now returns again with hip and shoulder aches still the same and consistent. Despite the fact that the patient was advised to follow-up with heat treater the patient returns to the emergency department... Patient comes in stating that pain to her shoulders, bilateral hips, and her right wrist is so excruciating and appears to be worse at nighttime. 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 She states that during the day she appears to be able to ambulate and do her activities okay but starts her day off very stiff. Patient denies any runny nose, sore throat, headache, neck pain, chest pain, abdominal pain, flank pain, nor any nausea/vomiting/diarrhea. Patient is allergic to lidocaine sulfa Past medical history significant for irregular heartbeat, she is on that both for control, , never vaccinated for pneumococcal, she has had arthroscopic knee surgery. PFSH Past Medical History Hx Anticoagulant Therapy: No Cardiovascular Problems: Yes (IRREGULAR HEART BEAT) Chemotherapy: No Cerebrovascular Accident: No Diabetes: No Diminished Hearing: No Respiratory: No ?: Not LMP: ON DEPO Menopausal: No Past Surgical History Joint Replacement: Yes (ARTHROSCOPIC SURGERY) Social History Alcohol Use: No Tobacco Use: No Substance Use: No Allergies-Medications (Allergen,Severity, Reaction): Coded Allergies: lidocaine (Unverified Allergy, Severe, Hives, 09/15/17) sulfamethoxazole (Unverified Allergy, Intermediate, Rash, 09/15/17) trimethoprim (Unverified Allergy, Intermediate, Rash, 09/15/17) *MDRO Multi-Drug Resistant Organism (Verified Allergy, Unknown, 09/15/17) MRSA - wound 08/2013 Sulfa (Sulfonamide Antibiotics) (Unverified Allergy, Unknown, rash, ) Reported Meds & Prescriptions Reported Meds & Active Scripts Active Macrobid (Nitrofurantoin Monohydrate Macrocrystals) 100 Mg Capsule 100 Mg PO BID 7 Days Medroxyprogesterone Inj 150 Mg/Ml Inj 150 Mg IM Q90D Review of Systems General / Constitutional: No: Fever Eyes: No: Visual changes HENT: No: Headaches Cardiovascular: No: Chest Pain or Discomfort Respiratory: No: Shortness of Breath Gastrointestinal: No: Abdominal Pain Genitourinary: No: Dysuria Musculoskeletal: Positive: Myalgias Skin: No Rash Neurologic: No: Weakness Psychiatric: No: Depression Endocrine: No: Polydipsia Hematologic/Lymphatic: No: Easy Bruising Physical Exam Narrative GENERAL: SKIN: Warm and dry. HEAD: Atraumatic. Normocephalic. EYES: Pupils equal and round. No scleral icterus. No injection or drainage. ENT: No nasal bleeding or discharge. Mucous membranes pink and moist. NECK: Trachea midline. No JVD. CARDIOVASCULAR: Regular rate and rhythm. RESPIRATORY: No accessory muscle use. Clear to auscultation. Breath sounds equal bilaterally. GASTROINTESTINAL: Abdomen soft, non-tender, nondistended. MUSCULOSKELETAL: Extremities without clubbing, cyanosis, or edema. No obvious deformities. NEUROLOGICAL: Awake and alert. No obvious cranial nerve deficits. Motor grossly within normal limits. Five out of 5 muscle strength in the arms and legs. Normal speech. PSYCHIATRIC: Appropriate mood and affect; insight and judgment normal. Data Data Last Documented VS Vital Signs Date Time Temp Pulse Resp B/P (MAP) Pulse Ox O2 Delivery O2 Flow Rate FiO2 09/15/17 22:33 98.4 87 18 128/75 (92) 93 Orders Orders Ketorolac Inj (Toradol Inj) (09/15/17 23:30) Ondansetron Odt (Zofran Odt) (09/15/17 23:30) Urinalysis - C+S If Indicated (09/15/17 23:28) Gc And Chlamydia Pcr (09/15/17 23:28) Ed Urine Pregnancytest Poc (09/15/17 23:28) Drug Screen, Random Urine (09/15/17 23:28) Wrist, Complete ([id number]) (09/15/17 ) Labs Laboratory Tests Test 09/15/17 23:30 Urine Color YELLOW Urine Turbidity CLEAR Urine pH 6.0 Urine Specific [place] 1.020 Urine Protein NEG mg/dL Urine Glucose (UA) NEG mg/dL Urine Ketones NEG mg/dL Urine Occult Blood NEG Urine Nitrite NEG Urine Bilirubin NEG Urine Urobilinogen 0.2 MG/DL Urine Leukocyte Esterase NEG Urine RBC 0-3 /hpf Urine WBC 6-8 /hpf Urine Squamous Epithelial Cells 0-5 /hpf Microscopic Urinalysis Comment CULT NOT INDICATED Urine Opiates Screen NEG Urine Barbiturates Screen NEG Urine Amphetamines Screen NEG Urine Benzodiazepines Screen NEG Urine Cocaine Screen NEG Urine Cannabinoids Screen NEG MDM Medical Decision Making Medical Screen Exam Complete: Yes Emergency Medical Condition: Yes Medical Record Reviewed: Yes Differential Diagnosis Rule out reactive arthritis versus Josue's syndrome versus lupus versus polymyalgia rheumatica versus fracture versus dislocation Narrative Course Clinically after evaluation and review of her chart and blood work, the most likely possibility is inflammatory disorder. Whether that involves lupus, Sjogren's, polymyalgia rheumatica, rheumatoid arthritis etc.... These are all conditions that need to be evaluated in diagnosed by a heat treater. I do not believe there is any additional blood testing that can be done through the emergency department to try and diagnose this patient. So it is highly recommended to the patient to follow-up with rheumatology as an outpatient for further evaluation and diagnosis. UA shows resolving UTI Tox screen negative for opiates barbiturates and amphetamines benzodiazepines cocaine or marijuana Chlamydia and gonorrhea currently pending X-ray based on my interpretation does not show any evidence of fracture, dislocation, subluxation Diagnosis Primary Impression: Myalgias versus arthralgias Patient Instructions: General Instructions, Musculoskeletal Pain (ED) Additional Instructions: DR RODRIGUES MANUFACTURING ENGINEER PAINT FOR FURTHER EVALUATION AND CARE. [address] [facility] [address], [place] [address] Disposition: 01 DISCHARGE HOME Condition: Stable Fabian Garcia MD September 15, 2017 23:02
[2017-09-15] MEDS ORDERED: ONDANSETRON ODT 4 MG TAB PO ONE (23:30)
[2017-09-15] MEDS ORDERED: KETOROLAC TROMETHAMINE 60 MG/2 ML (IM) VIAL IM ONE (23:30)
[2017-09-15 23:49] LABS: BILIRUBIN, URINE NEG (NEG); BLOOD, URINE NEG (NEG); GLUCOSE,URINE NEG (NEG); KETONE, URINE NEG (NEG); NITRITE,URINE NEG (NEG); URINE COLOR YELLOW (YELLW/STRAW); URINE LEUKOCYTE ESTERASE NEG (NEG)
[2017-09-16] LABS: RBC, URINE 0-3 /hpf (0-3); SQUAMOUS EPITHELIAL CELL URINE 0-5 /hpf (0-5)
--- NOTE | 2017-09-16 00:29 | RADRPT ---
EXAM DATE/TIME: 09/15/2017 23:44 [facility] COMPARISON: No previous studies available for comparison. INDICATIONS : Right wrist pain from unknown injury. MEDICAL HISTORY : None. SURGICAL HISTORY : None. ENCOUNTER: Initial ACUITY: 1 day PAIN SCORE: 4/10 LOCATION: Right lateral wrist. FINDINGS: Three view examination of the right wrist demonstrates no soft tissue swelling, dislocation, or fract ure. The carpal bones are in normal alignment. The joint spaces are maintained. Bony mineralizatio n is normal. CONCLUSION: Unremarkable examination of the right wrist. Dimitrios Chowdary Jr., MD on September 16, 2017 at 0:27 Board Certified Radiologist. This report was verified electronically.
[2017-09-16 00:37] VITALS: BP 120/68
== END 2017-09-16 00:40 | disposition home or self-care (01) ==
LOC: PHED 22:27
DX: M25.512 Pain in left shoulder (principal); M25.511 Pain in right shoulder; M25.552 Pain in left hip; M25.551 Pain in right hip; M25.531 Pain in right wrist; N39.0 Urinary tract infection, site not specified
CPT/HCPCS: 73110; 80307; 81001; 84703; 87491; 87591; 96372; 99284; J1885